=== PATIENT | male | born 1945 | race African-American/Black ===

== ENCOUNTER 2017-02-08 12:17 | Emergency (ER) | payer OTHER, MEDICAID ==
--- NOTE | 2017-02-08 12:49 | ED Physician Chart ---
Chief Complaint/HPI - Patient Information Date Seen:: 02/08/17 Time Seen:: 12:35 Chief Complaint:: generalized weakness History of Present Illness:: Patient states his only problem is his director long term care has not come to his house and given him his medication for last 3 days. Patient states he ambulates normally. Patient denies recent chest pain or shortness of breath. Patient's neighbor called the ambulance. Patient drank 48 ounces of beer this morning. Allergies:: Allergies Allergy/AdvReac Type Severity Reaction Status Date / Time No Known Allergies Allergy Verified 02/08/17 12:37 Vitals:: Vital Signs - 8 hr 02/08/17 12:37 Temp 97.8 F HR 87 RR 16 BP 140/88 O2 Sat % 98 Historian:: Patient, EMS Review:: Nurse's Note Reviewed Review of Systems - Review of Systems General/Constitutional: No fever, No chills Skin: No skin lesions Head: No headache, No light-headedness Eyes: No loss of vision, No pain ENT: No earache, No sore throat Neck: No neck pain Cardio Vascular: No chest pain, No palpitations Pulmonary: No SOB, No cough GI: No nausea, No vomiting, No diarrhea G/U: No dysuria Musculoskeletal: No bone or joint pain, No back pain, No muscle pain Endocrine: No polyuria, No polydipsia Psychiatric: No prior psych history Past Medical History - Past Medical History Past Medical History: HTN, DM, CAD Family History: Heart disease Social History: Non Smoker, Alcohol, Other (patient drinks 2 48 ounce beers per day and smokes marijuana, not cigarets) Surgical History: None Psychiatricy History: None Family Medical History - Family Member Father Hx Family Cancer: No Hx Family Coronary Artery Disease: Yes Hx Family Congestive Heart Failure: No Hx Family Hypertension: No Hx Family Stroke: No Hx Family Diabetes: Yes Hx Family Seizures: No Hx Family Dementia: No Hx Family AIDS: No Hx Family HIV: No Hx Family COPD: No Hx Family Hepatitis: No Hx Family Psychiatric Problems: No Hx Family Tuberculosis: No Physical Exam - Physical Examination General/Constitutional: Well-developed, well-nourished, Alert, No distress Other Gen/Cons comments:: Patient is alert and oriented to the correct month and year but not to the date. Head: Atraumatic Eyes: Lids, conjuctiva normal, PERRL Skin: Nl inspection, No rash, No skin lesions, No ecchymosis ENMT: External ears, nose nl, TM canals nl, Nasal exam nl, Oropharynx nl, Tonsils nl Other ENMT comments:: 3 out of 4 periodontal disease Neck: No nuchal rigidity Respiratory: Nl effort/Exclusion, Clear to Auscultation, No Wheeze/Rhonchi/Rales Cardio Vascular: RRR GI: No tenderness/rebounding/guarding, No organomegaly, No hernia, Normal BS's : No CVA tenderness Extremities: Normal digits & nails Neuro/Psych: Alert/oriented Misc: Normal back, No paraspinal tenderness Labs/Radiology/EKG Results - Lab Results Results: Laboratory Results - last 24 hr 02/08/17 02/08/17 02/08/17 12:52 12:52 12:52 WBC 8.0 RBC 5.33 Hgb 12.5 L Hct 39.6 MCV 74.3 L MCH 23.5 L MCHC Differential 31.7 RDW 16.1 Plt Count 236 MPV 7.4 Neutrophils % 74.5 Lymphocytes % 16.8 L Monocytes % 7.3 Eosinophils % 0.5 Basophils % 0.9 PT 10.5 INR 1.01 Sodium 134 L Potassium 4.2 Chloride 103 Carbon Dioxide 25.0 Anion Gap 10.2 BUN 8 Creatinine 0.8 Est GFR ( Amer) TNP Est GFR (Non-Af Amer) TNP BUN/Creatinine Ratio 10.0 Glucose 99 Calcium 9.8 Total Bilirubin 0.6 AST 34 ALT 39 Alkaline Phosphatase 182 H Total Protein 7.7 Albumin 4.4 Globulin 3.3 Albumin/Globulin Ratio 1.3 Lipase 27 Ethyl Alcohol 18 H - Radiology Results Results: CXR normal - EKG Interpretations Rate & Rhythm: NSR [place]: left Comments:: LVH: early repolarization Assessment - Assessment General Assessment: At about 1400 and patient wanted to go home. I talked to Dr. Dyson at [facility] and he said he would get case management involved with the patient. I was concerned that the patient's director long term care had not come to the patient's home in the last 3 days. Patient ambulated normally in the emergency department. ED Septic Shock - . Is Septic Shock (SBP<90, OR Lactate>4 mmol\L) present?: No - <6hrs of presentation: Vital Signs: Vital Signs - 8 hr 02/08/17 12:37 Temp 97.8 F HR 87 RR 16 BP 140/88 O2 Sat % 98 Reassessment (Disposition) - Reassessment Reassessment Condition:: Improved - Diagnosis Diagnosis:: Acute and chronic alcohol abuse - Aftercare/Follow up Instructions Aftercare/Follow-Up Instructions:: Refer to Discharge Instructions - Patient Disposition Discharge/Transfer:: Home Condition at Disposition:: Stable, Improved
[2017-02-08 13:02] LABS: % BASOPHILS 0.9 % (0.0-2.0); % EOSINOPHILS 0.5 % (0.0-5.0); % LYMPHOCYTES 16.8 % (20.0-50.0); % MONOCYTES 7.3 % (2.0-10.0); % NEUTROPHILS 74.5 % (40.0-80.0); HEMATOCRIT 39.6 % (39.0-49.0); HEMOGLOBIN 12.5 gm/dL (12.6-17.4); MEAN CELL VOLUME 74.3 fl (80-99); MEAN CORPUSCULAR HEMOGLOBIN 23.5 pg (27.0-31.0); MEAN CORPUSCULAR HGB CONC 31.7 pg (28.0-36.0); MEAN PLATELET VOLUME 7.4 fl; PLATELET COUNT 236 Th/cmm (150-400); RED BLOOD COUNT 5.33 Mil/cmm (3.80-5.80); RED CELL DISTRIBUTION WIDTH 16.1 % (11.5-20.0)
[2017-02-08 13:15] LABS: INR 1.01 (0.5-1.4); PROTHROMBIN TIME (TEST) 10.5 SECONDS (9.5-11.5)
[2017-02-08 13:17] LABS: ALB/GLOB RATIO 1.3 (1.0-1.8); ALKALINE PHOSPHATASE 182 U/L (34-104); ANION GAP 10.2 (7.0-16.0); BILIRUBIN,TOTAL 0.6 mg/dL (0.3-1.0); BUN - UREA NITROGEN 8 mg/dL (7-25); CALCIUM SERUM 9.8 mg/dL (8.6-10.3); CHLORIDE 103 mEq/L (98-107); CREATININE - SERUM 0.8 mg/dL (0.7-1.3); GLUCOSE 99 mg/dL (70-105); LIPASE 27 U/L (11-82); POTASSIUM SERUM 4.2 mEq/L (3.5-5.1); SGOT 34 U/L (13-39); SGPT/ALT 39 U/L (7-52); SODIUM SERUM 134 mEq/L (136-145)
--- NOTE | 2017-02-08 16:38 | Diagnostic Imaging Report ---
Portable chest x-ray History: Shortness of breath Allowing for portable technique the heart size is normal. No focal pulmonary parenchymal processes. No hilar or mediastinal abnormalities. Impression: No acute abnormalities.
== END 2017-02-08 14:40 | disposition home or self-care (01) ==
LOC: ER 12:17
DX: F10.10 Alcohol abuse, uncomplicated (principal); I10 Essential (primary) hypertension; E11.9 Type 2 diabetes mellitus without complications; I25.10 Atherosclerotic heart disease of native coronary artery without angina pectoris
CPT/HCPCS: 36415-UA; 71010-TC; 80053-TC; 80320-TC; 83690-TC; 84484-TC; 85025-TC; 85610-TC; 93005

== ENCOUNTER 2017-02-16 08:59 | Emergency (ER) | payer OTHER, MEDICAID ==
--- NOTE | 2017-02-16 09:43 | ED Physician Chart ---
Chief Complaint/HPI - Patient Information Date Seen:: 02/16/17 Time Seen:: 09:20 Chief Complaint:: Anxiety History of Present Illness:: Onset x 2 days of nervousness and anxiousness; Hx of Anxiety; pt ran out out of his medications; pt denies Chest Pain, dyspnea, Abdominal Pain, A/N/V/D/C, fever , chills, cough, SIs, depression, hallucinations, H/As, neck pain, visual or gait changes Allergies:: Allergies Allergy/AdvReac Type Severity Reaction Status Date / Time No Known Allergies Allergy Verified 02/08/17 12:37 Vitals:: Vital Signs - 8 hr 02/16/17 02/16/17 09:18 09:22 Temp 97.9 F 97.9 F HR 86 86 RR 16 16 BP 130/76 130/76 O2 Sat % 100 100 Historian:: Patient, EMS Review:: Nurse's Note Reviewed, Old Chart Reviewed, EMS run form Reviewed Review of Systems - Review of Systems General/Constitutional: Fever, Chills, No weight loss, Weakness, No diaphoresis , No edema, No loss of appetite Skin: No skin lesions, No rash, No bruising Head: No headache, No light-headedness Eyes: No loss of vision, No pain, No diplopia ENT: No earache, Nasal drainage, No sore throat, No tinnitus Neck: No neck pain, No swelling, No thyromegaly, No stiffness, No mass noted Cardio Vascular: No chest pain, Palpitations, No PND, No orthopnea, No edema Pulmonary: No SOB, Cough, No sputum, No wheezing GI: Nausea, Vomiting, Diarrhea, No pain, No melena, No hematochezia, No constipation, No hematemesis G/U: No dysuria, No frequency, No hematuria Musculoskeletal: No bone or joint pain, No back pain, Muscle pain Endocrine: No polyuria, No polydipsia Psychiatric: No prior psych history, No depression, Anxiety, No suicidal ideation Hematopoietic: No bruising, No lymphadenopathy Allergic/Immuno: No urticaria, No angioedema Neurological: No syncope, No focal symptoms, Weakness, No paresthesia, No headache, No seizure, No dizziness, No confusion, No vertigo Past Medical History - Past Medical History Past Medical History: HTN, DM Family History: Diabetes Melitus, HTN Social History: Non Smoker, No Alcohol, No Drug Use, Single Surgical History: None Psychiatricy History: Other (Anxiety Reaction) Family Medical History - Family Member Father History Unknown: Yes Ethnicity: Non- Living Status: Hx Family Cancer: No Hx Family Coronary Artery Disease: Yes Hx Family Congestive Heart Failure: No Hx Family Hypertension: No Hx Family Stroke: No Hx Family Diabetes: Yes Hx Family Seizures: No Hx Family Dementia: No Hx Family AIDS: No Hx Family HIV: No Hx Family COPD: No Hx Family Hepatitis: No Hx Family Psychiatric Problems: No Hx Family Tuberculosis: No Physical Exam - Physical Examination General/Constitutional: Awake, Well-developed, well-nourished, Alert, No distress, GCS 15, Non-toxic appearing, Ambulatory Head: Atraumatic Eyes: Lids, conjuctiva normal, PERRL, EOMI Skin: Nl inspection, No rash, No skin lesions, No ecchymosis, Well hydrated, No lymphadenopathy ENMT: External ears, nose nl, Nasal exam nl, Lips, teeth, gums nl Neck: Nontender, Full ROM w/o pain, No JVD, No nuchal rigidity, No bruit, No mass, No stridor Respiratory: Nl effort/Exclusion, Clear to Auscultation, No Wheeze/Rhonchi/Rales Cardio Vascular: RRR, No murmur, gallop, rubs, NL S1 S2 GI: No tenderness/rebounding/guarding, No organomegaly, No hernia, Normal BS's, Nondistended, No mass/bruits, No McBurney tenderness : No CVA tenderness Extremities: No tenderness or effusion, Full ROM, normal strength in all extremities, No edema, Normal digits & nails Neuro/Psych: Alert/oriented, DTR's symmetric, Normal sensory exam, Normal motor strength, Judgement/insight normal, Mood normal, Normal gait, No focal deficits Misc: normal gait, Normal back, No paraspinal tenderness Labs/Radiology/EKG Results - Lab Results Results: Laboratory Tests 02/16/17 09:14 POC Glucose 195 H ED Septic Shock - . Is Septic Shock (SBP<90, OR Lactate>4 mmol\L) present?: No - <6hrs of presentation: Vital Signs: Vital Signs - 8 hr 02/16/17 02/16/17 09:18 09:22 Temp 97.9 F 97.9 F HR 86 86 RR 16 16 BP 130/76 130/76 O2 Sat % 100 100 Reassessment (Disposition) - Reassessment Reassessment Condition:: Improved - Diagnosis Diagnosis:: Anxiety Reaction - Aftercare/Follow up Instructions Aftercare/Follow-Up Instructions:: Counseled pt regarding lab results/diagnosis & need follow up, Refer to Discharge Instructions, Counseled pt & family regarding lab results/diagnosis & need follow up Medication Prescribed:: Rx: Xanax 0.25mg po tid prn anxiety (#6); - Patient Disposition Discharge/Transfer:: Home Condition at Disposition:: Stable, Improved (RTER prn if existing s/s reoccur and/or get worse and/or any other new s/s occur; ACIs given for all Dx; Refer to Psychiatrist/Vice President & General Manager [employer] [facility]; F/U with PMD in one day or prn; RTER prn if concerned) ED Discharge Plan - Patient Disposition Instructions: Anxiety and Panic Attacks, [id number]
== END 2017-02-16 10:00 | disposition home or self-care (01) ==
LOC: ER 08:59
DX: F41.9 Anxiety disorder, unspecified (principal); I10 Essential (primary) hypertension; E11.9 Type 2 diabetes mellitus without complications
CPT/HCPCS: 82948-90; Z7502

== ENCOUNTER 2017-04-15 08:28 | Emergency (ER) | payer OTHER, MEDICAID ==
--- NOTE | 2017-04-15 08:46 | ED Physician Chart ---
Chief Complaint/HPI - Patient Information Date Seen:: 04/15/17 Time Seen:: 08:30 Chief Complaint:: Pt is here to request medication refills. History of Present Illness:: Brought in by ambulance for the above reason. Pt feels well without subjective complaint. Pt denies any bodily pain or discomfort. Pt states that he is a [place] [employer] plan member. Pt actually requested to be transported to a [place] facility but the ambulance staff decided to bring him here instead. Pt states that he is a patient at [facility] in [place]. Pt does not have a list of his medications. Pt prefers to be further evaluated and managed by his PCP and requests to leave now. Allergies:: Allergies Allergy/AdvReac Type Severity Reaction Status Date / Time No Known Allergies Allergy Verified 02/08/17 12:37 Vitals:: see Nurse Note. Historian:: Patient Family MD/PCP:: [facility] in [place]. LMP:: N/A Review:: Nurse's Note Reviewed Review of Systems - Review of Systems General/Constitutional: No fever, No chills, No weakness, No edema, No loss of appetite Skin: No skin lesions, No rash, No bruising Head: No headache, No light-headedness Eyes: No pain, No diplopia ENT: No earache, No nasal drainage, No sore throat Neck: No neck pain, No swelling, No thyromegaly Cardio Vascular: No chest pain, No palpitations, No PND, No orthopnea, No edema Pulmonary: No SOB, No cough, No wheezing GI: No nausea, No vomiting, No diarrhea, No pain, No melena, No hematochezia G/U: No dysuria, No hematuria Musculoskeletal: No bone or joint pain, No back pain, No muscle pain Endocrine: No polyuria, No polydipsia Psychiatric: No prior psych history Hematopoietic: No bruising, No lymphadenopathy Allergic/Immuno: No urticaria, No angioedema Neurological: No syncope, No focal symptoms, No weakness, No paresthesia, No headache, No dizziness, No confusion Past Medical History - Past Medical History Past Medical History: HTN, DM Family History: Diabetes Melitus (in father.) Social History: Non Smoker, No Alcohol, No Drug Use, , Lives Alone Employment:: Retired. Surgical History: other (Bilateral knee surgeries in the 60's.) Psychiatricy History: None Medication Reviewed:: Pt does not know the names of his medications. He prefers to return to his PCP for further follow up and refills of his medications. Family Medical History - Family Member Father History Unknown: Yes Ethnicity: Non- Living Status: Hx Family Cancer: No Hx Family Coronary Artery Disease: Yes Hx Family Congestive Heart Failure: No Hx Family Hypertension: No Hx Family Stroke: No Hx Family Diabetes: Yes Hx Family Seizures: No Hx Family Dementia: No Hx Family AIDS: No Hx Family HIV: No Hx Family COPD: No Hx Family Hepatitis: No Hx Family Psychiatric Problems: No Hx Family Tuberculosis: No Physical Exam - Physical Examination General/Constitutional: Awake, Well-developed, well-nourished, Alert, No distress, GCS 15, Non-toxic appearing, Ambulatory Other Gen/Cons comments:: Breathes comfortably, speaks clearly, interacts normally, and ambulates without difficulty. Head: Atraumatic Eyes: Lids, conjuctiva normal, PERRL, EOMI Skin: Nl inspection, No rash, No skin lesions, No ecchymosis, Well hydrated, No lymphadenopathy ENMT: External ears, nose nl, Nasal exam nl, Oropharynx nl Neck: Nontender, Full ROM w/o pain, No JVD, No nuchal rigidity, No mass, No stridor Respiratory: Nl effort/Exclusion, Clear to Auscultation, No Wheeze/Rhonchi/Rales Cardio Vascular: RRR, No murmur, gallop, rubs GI: No tenderness/rebounding/guarding, No organomegaly, No hernia, Normal BS's, Nondistended, No mass/bruits Other GI comments:: Abdomen is soft. Extremities: No tenderness or effusion, Full ROM, normal strength in all extremities, No edema Neuro/Psych: Alert/oriented (x 3), Mood normal, Normal gait, No focal deficits ED Septic Shock - . Is Septic Shock (SBP<90, OR Lactate>4 mmol\L) present?: No Reassessment (Disposition) - Reassessment Reassessment:: 0900 Pt remains stable without any bodily pain or discomfort. Pt requests to go home now and prefers to follow with his PCP for further follow up and refill of his medications. Aftercare instructions have been given. Reassessment Condition:: Unchanged - Diagnosis Diagnosis:: h/o Diabetes mellitus and HTN by hx., stable. - Aftercare/Follow up Instructions Aftercare/Follow-Up Instructions:: Refer to Discharge Instructions Notes:: Continue present care. F/U with PCP at [facility] as preferred by pt in one day for recheck. Return to ER immediately if any further questions/problems. Medication Prescribed:: None - Patient Disposition Discharge/Transfer:: Home Time:: 09:05 Condition at Disposition:: Stable ED Discharge Plan - Patient Disposition Admit/Discharge/Transfer: PT DISCHARGED HOME Condition at Disposition: Stable Instructions: Type 2 Diabetes Mellitus, Adult Additional Instructions: Follow up with your PMD . If new symptoms occurs or symptoms worsen come back to ER
== END 2017-04-15 09:27 | disposition home or self-care (01) ==
LOC: ER 08:28
DX: Z76.0 Encounter for issue of repeat prescription (principal); E11.9 Type 2 diabetes mellitus without complications; I10 Essential (primary) hypertension
CPT/HCPCS: 82948-90; Z7502